=== PATIENT | female | born 1940 | race Caucasian/White ===

== ENCOUNTER 2017-03-30 16:24 | Inpatient (IN) | payer BC, SELFPAY ==
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
--- NOTE | ~2017-03-30 | DS ---
Discharge Summary [facility] [address] [place]. [address] NAME: HARI SARAH : 40 STATUS : DIS IN PAT#: [id number] AGE: 76 ADM/REG DATE : 03/30/17 MR#: [id number] REPORT SERV DATE: 04/07/17 DICTATED BY: MARCELINO CARDONA DATE: 04/07/17 REPORT STATUS : Draft TRANSCRIBED BY: MODL DATE: 04/07/17 ADMISSION DATE: 03/30/2017 DISCHARGE DATE: 04/07/2017 DIAGNOSES ON ADMISSION: 1. Non-anion gap metabolic acidosis. 2. Hypotension. 3. Acute kidney injury. 4. Polypharmacy. 5. Leukocytosis. 6. Severe chronic obstructive pulmonary disease. 7. Diarrhea. DIAGNOSES ON DISCHARGE: 1. Non-anion gap metabolic acidosis present on admission, resolved. 2. Hypotension, resolved, currently blood pressure is in the normal range. 3. Acute kidney injury present on admission, resolved. 4. Polypharmacy. 5. Leukocytosis, resolved. 6. Chronic obstructive pulmonary disease exacerbation present on admission, resolved, no evidence of pneumonia. 7. Dementia with psychosis. Psychosis improved. She has a baseline dementia with some disorientation. CONSULTANTS ON THE CASE: Neurology nurse practitioner, Tamiko Terrazas. STUDIES DONE DURING THIS HOSPITALIZATION: Electroencephalography showed diffuse slowing of cerebral activity, suggestive of mild encephalopathy. Chest x-ray done on 04/06/2017 showed atelectasis in the right lung base, improving compared to previous study. CT of the chest, which was done on 03/30/2017, showed grossly enlarged pulmonary trunk suggesting underlying pulmonary hypertension, upper lobe predominant COPD, mild right middle lobe subsegmental atelectasis, mild mucous plugging in the right posterior basal lower lobe bronchus without atelectasis, 0.4 cm anterior right upper lobe pulmonary nodule of doubtful clinical significance, one year followup on noncontrast CT recommended, densely calcified thoracic aorta suggesting of coronary artery atherosclerotic disease. CT abdomen and pelvis showed sigmoid diverticulosis without diverticulitis, mild infrarenal abdominal aortic ectasia 2.7 cm with moderate atherosclerosis, cholelithiasis, and also spinal stenosis at L2-L3, L3-L4, and L4-L5. CT of the cervical spine did not show any evidence of traumatic injury, it was also done on Brisa [address] on admission. CT of the head showed no evidence of intracranial pathology, cerebral volume loss with supratentorial white matter disease suggesting microangiopathy. HISTORY OF PRESENT ILLNESS: Briefly, this is a 76-year-old female who was admitted by Dr. Shearer with confusion and lethargy. She was found down and covered in diarrhea. For details, see history of present illness dictated by Dr. Shearer. Discharge Summary [address] [place]. [address] NAME: HARI SARAH : 40 STATUS : DIS IN PAT#: [id number] AGE: 76 ADM/REG DATE : 03/30/17 MR#: [id number] REPORT SERV DATE: 04/07/17 DICTATED BY: MARCELINO CARDONA DATE: 04/07/17 REPORT STATUS : Draft TRANSCRIBED BY: SUZETTE DATE: 04/07/17 HOSPITAL COURSE: Briefly, the patient was seen by Dr. Huang until April 04 when I started to see this patient. She was doing well. Her bronchitis was improving. She did not have any fever. White count was in the normal range. She was doing well. She had some confusion, but this was chronic confusion related to her dementia. She was very awake and alert, talking to everybody. She did not have any chest pain or no shortness of breath. She was evaluated by Neurology nurse practitioner, Tamiko Terrazas, who recommended to decrease the dose of Seroquel because it could make her over-sedated and this was done. She did not have any significant cough as well. Overall, the patient improved a lot. She is doing well, so it was recommended the patient to be discharged to rehab. Her creatinine was also stable and it was recommended the patient not to be dehydrated and she needs to be encouraged to drink more water. Also, she will need to recheck her basic metabolic panel on 04/10/2017 at [facility] to make sure it is staying in the same range. On 04/06/2017, her creatinine was 1.25, and on 04/07/2017, it was 1.23, so it is recommended to recheck again and the patient should be encouraged to drink, as well as we would recommend her primary care physician to do a CT of the chest in a year for evaluation of a small pulmonary nodule of undetermined significance. Her psychiatric medications were arranged by neurologist. The patient to continue aspirin 81 mg a day, the patient to stop Mobic because it can cause kidney damage, BuSpar 5 mg p.o. t.i.d., hold for sedation, vitamin D 50,000 units weekly, Neurontin was decreased to 300 p.o. q.8 hours, the patient was started on Aricept by Tamiko Terrazas for her dementia 5 mg a day, Remeron 15 mg at bedtime, nicotine patch 14 mg to be continued, Protonix 40 mg p.o. b.i.d., Seroquel dose was decreased to 50 mg at bedtime and 25 mg in the morning, Zocor 40 mg a day, Advair Diskus one puff inhaled twice a day, albuterol breathing treatment three times daily p.r.n., Colace 100 mg p.o. b.i.d., Tylenol 650 p.o. q.4 hours p.r.n. for pain, nitroglycerin 0.4 mg as needed for pain, the patient to stop Vasotec, Norvasc 5 mg a day, hydralazine 10 mg p.o. b.i.d. p.r.n. for systolic blood pressure more than 160. Check BMP at [facility] on 04/10/2017. The patient was discharged in stable condition. Everything was discussed with the patient and her daughter. I spent 45 minutes on discharge. DICTATED BY: Chandler Mcfarlane/SUZETTE Marcelino Cardona M.D. / [id number] CC: Chandler Mcfarlane SHERRY R.
--- NOTE | ~2017-03-30 | EEG ---
Electroencephalogram [facility] [address] [facility] [place]. [address] NAME: HARI SARAH : 40 STATUS : ADM IN PAT#: [id number] AGE: 76 ADM/REG DATE : 03/30/17 MR#: [id number] REPORT SERV DATE: 04/05/17 DICTATED BY: KIERSTEN ALVAREZ DATE: 04/05/17 REPORT STATUS : Draft TRANSCRIBED BY: MODL DATE: 04/05/17 ELECTROENCEPHALOGRAPHY REPORT REQUESTING PHYSICIAN: Dr. Cristal Huang. ORDERING PHYSICIAN: Tamiko Terrazas APN. INTERPRETING PHYSICIAN: Kiersten Alvarez MD-Neurology. REASON FOR EEG: Altered mental status, encephalopathy. 23 surface electrodes, 10-20 international placement was used. The patient was noted to be awake, drowsy, and asleep throughout the study. Photic stimulation was performed. Video monitoring was utilized. The background activity consisted of poorly organized moderate voltage 8 cycles per second located in the posterior head regions during the awake portion of the recording. During drowsiness and light sleep, increase of slower frequencies was noted in the temporal regions bilaterally. Photic stimulation produced a normal driving response posteriorly. No significant asymmetry of cerebral activity was noted. No paroxysmal or epileptiform features were detected. IMPRESSION: ABNORMAL EEG CHARACTERIZED BY PRESENCE OF DIFFUSE SLOWING OF CEREBRAL ACTIVITY. THE ABOVE FINDINGS MAY BE SUGGESTIVE OF MILD ENCEPHALOPATHY, NATURE OF WHICH COULD NOT BE DETERMINED ON THE BASIS OF EEG ALONE. CLINICAL CORRELATION IS RECOMMENDED. WADEA/SUZETTE Kiersten Alvarez MD / [id number] CC: Chandler Mcfarlane
[2017-03-30 15:44] LABS: ALLENS TEST Pos; BE (BASE EXCESS) -10.6 MEQ/L (0 +/- 2.5); CARBOXYHEMOGLOBIN 4.6 % (0-3); HCO3 (ACTUAL BICARBONATE) 16.9 MEQ/L (23-27); HEMOBLOGIN CONTENT 12.7 G/DL (12-16); INSTRUMENT SERIAL # 8087; METHEMOGLOBIN 0.3 % (0-3); PCO2 (CO2 TENSION) 43 MMHG (35-45); PO2 (O2 TENSION) 60 MMHG (79-93); SAMPLE Arterial; pH 7.21 (7.37-7.43)
[2017-03-30 15:49] LABS: BASOPHILS 0.2 %; BASOPHILS ABSOLUTE 0.02 10/3/uL (0.0-0.16); EOSINOPHILS 1.7 %; EOSINOPHILS ABSOLUTE 0.22 10/3/uL (0.0-0.53); IMMATURE GRANULOCYTES 0.2 %; IMMATURE GRANULOCYTES ABSOLUTE 0.02 10/3/uL (0.0-0.11); LYMPHOCYTES 6.6 %; LYMPHOCYTES ABSOLUTE 0.84 10/3/uL (0.67-4.30); MEAN CORPUS HGB CONC 32.7 g/dL (32.0-36.0); MEAN PLATELET VOLUME 9.9 fL (9.2-13.0); MONOCYTES 6.5 %; MONOCYTES ABSOLUTE 0.83 10/3/uL (0.21-1.20); NEUTROPHILS 84.8 %; NEUTROPHILS ABSOLUTE 10.82 10/3/uL (2.02-8.40)
[2017-03-30 15:50] LABS: ER CBC TAT 0 Hrs 06 MinsN; HEMATOCRIT 40.4 % (36.0-48.0); HEMOGLOBIN 13.2 g/dL (12.0-16.0); MANUAL DIFF NO %; MEAN CORPUSCULAR HEMOGLOB 27.3 pg (26.0-34.0); MEAN CORPUSCULAR VOLUME 83.6 fL (80-100); PLATELET COUNT 236 10/3/uL (150-400); RED CELL COUNT 4.83 10/6/uL (4.0-5.6); WHITE BLOOD CELLS 12.8 10/3/uL (4.5-10.5)
[2017-03-30 16:00] LABS: INTERNATIONAL NORMAL RATI 1.2 UNITS (-); PARTIAL THROMBO TIME 30.5 SEC (22.5-37.2); PROTIME (NOT ORD) 14.8 SEC (12.0-14.5)
[2017-03-30 16:06] LABS: ALBUMIN 2.9 G/DL (3.5-5.0); CALCIUM, SERUM 7.9 MG/DL (8.5-10.4); CHEST PAIN PROFILE TAT 0 Hrs 22 Mins; CHLORIDE, SERUM 106 MMOL/L (96-112); CO2 (CARBON DIOXIDE) 21 MMOL/L (24-34); DIRECT BILIRUBIN 0.2 MG/DL (0.0-0.4); POTASSIUM, SERUM 4.1 MMOL/L (3.5-5.3); SGOT(AST) 137 U/L (5-40); SGPT(ALT) 67 U/L (5-65); SODIUM, SERUM 140 MMOL/L (135-148); TOTAL PROTEIN 5.9 G/DL (6.0-8.5); TROPONIN I 0.04 NG/ML (<0.05)
[2017-03-30 16:07] LABS: ALKALINE PHOSPHATASE 175 U/L (45-117); BUN (BLOOD UREA NITROGEN) 41 MG/DL (6-23); CREATININE 2.41 MG/DL (0.55-1.02); GFR AFRICAN AMERICAN 22 ML/MIN (>=60); GFR NON AFRICAN AMERICAN 19 ML/MIN (>=60); GLUCOSE, SERUM 137 MG/DL (60-99); TOTAL BILIRUBIN 1.2 MG/DL (0-1.2)
[2017-03-30 16:09] LABS: ASCORBIC ACID (UR NOT ORDER) NEG (NEG); BILIRUBIN, URINE NEGATIVE (NEG); ER URINALYSIS TAT 0 Hrs 09 Mins; KETONE, URINE NEGATIVE (NEG); LEUKOCYTE ESTERASE(NOT OR NEG (NEG); NITRITE (URINE) NEG (NEG); WBC (NOT ORDERED) (RFLEX) < 1 (0-5)
[2017-03-30 16:13] LABS: LACTATE 2.6 MMOL/L (0.3-2.4)
[~2017-03-30 16:24] MED LIST: ALLEGRA-D12 HOUR PO; ALLEGRA180 PO; AMB10 PO; DOLOPHINE10 MG PO; FLEX PO; FLONASE NAS; LORTAB 5 PO; LORTAB10 PO; MCZ25 PO; MOBIC7.5 PO; PR25 PO; PRILOSEC40 MG PO; ULTRAM50 PO; VASOTEC5 PO; ZESTORETIC PO; ZITH250 PO; ZOCOR40 PO; ZOL50 PO
[2017-03-30] MEDS ORDERED: SEROQUEL50 MG PO ×2 (16:26)
[2017-03-30] MEDS ORDERED: NEUR600 PO (16:28)
[2017-03-30] MEDS ORDERED: BUSPAR5 PO (16:28)
[2017-03-30] MEDS ORDERED: VITD PO (16:29)
[2017-03-30] MEDS ORDERED: ZOCOR40 PO (16:30)
[2017-03-30] MEDS ORDERED: VASOTEC20 MG PO (16:31)
[2017-03-30] MEDS ORDERED: REM15 PO (16:31)
[2017-03-30] MEDS ORDERED: HALF81 PO (16:32)
[2017-03-30] MEDS ORDERED: NORV5 PO (16:33)
[2017-03-30] MEDS ORDERED: DSS PO (16:34)
[2017-03-30] MEDS ORDERED: ADVAIR250 INH (16:35)
[2017-03-30] MEDS ORDERED: VENTOLIN HFA INH (16:36)
[2017-03-30] MEDS ORDERED: ALBUTEROL0.083 % INH (16:37)
[2017-03-30 16:45] LABS: PROCALCITONIN 0.24 ng/mL (<0.5)
[2017-03-30 17:45] LABS: ACETAMINOPHEN LEVEL (TYLENOL) < 2.0 MCG/ML (10.0-20.0); ALCOHOL < 10 MG/DL (0)
[2017-03-30 17:53] LABS: BE (BASE EXCESS) -9.2 MEQ/L (0 +/- 2.5); CARBOXYHEMOGLOBIN 3.9 % (0-3); HCO3 (ACTUAL BICARBONATE) 18.8 MEQ/L (23-27); HEMOBLOGIN CONTENT 12.4 G/DL (12-16); INSTRUMENT SERIAL # 8087; METHEMOGLOBIN 0.3 % (0-3); O2 CONTENT 15.1 VOL% (18-24); PCO2 (CO2 TENSION) 50 MMHG (35-45); PO2 (O2 TENSION) 67 MMHG (79-93); SAMPLE Arterial
[2017-03-30 17:58] LABS: BENZODIAZEPINES (NOT ORD) NEG (NEG); COCAINE (NOT ORDERED) NEG (NEG); PHENCYCLIDINE(PCP) NEG (NEG)
[2017-03-30 17:59] LABS: AMPHETAMINES (NOT ORD) NEG (NEG); BARBITURATES (NOT ORDERED NEG (NEG); CANNABINOIDS (THC) NEG (NEG); OPIATES NEG (NEG); TRICYCLICS NEG (NEG)
[2017-03-30 18:25] LABS: ACETONE NEG
[2017-03-30 18:38] LABS: LACTATE 1.7 MMOL/L (0.3-2.4)
[2017-03-30 18:48] LABS: CPK 1837 U/L (0-200)
[2017-03-31 03:17] LABS: ALLENS TEST Pos; BE (BASE EXCESS) -0.8 MEQ/L (0 +/- 2.5); CARBOXYHEMOGLOBIN 1.5 % (0-3); DEVICE NC; HCO3 (ACTUAL BICARBONATE) 24.6 MEQ/L (23-27); HEMOBLOGIN CONTENT 11.4 G/DL (12-16); INSTRUMENT SERIAL # 8083; METHEMOGLOBIN 0.3 % (0-3); O2 CONTENT 14.7 VOL% (18-24); OPERATOR ID 33214; PCO2 (CO2 TENSION) 44 MMHG (35-45); PO2 (O2 TENSION) 67 MMHG (79-93); SAMPLE Arterial; pH 7.37 (7.37-7.43)
[2017-03-31 04:07] LABS: BASOPHILS 0.2 %; BASOPHILS ABSOLUTE 0.02 10/3/uL (0.0-0.16); EOSINOPHILS 0.7 %; EOSINOPHILS ABSOLUTE 0.06 10/3/uL (0.0-0.53); HEMOGLOBIN 11.7 g/dL (12.0-16.0); IMMATURE GRANULOCYTES 0.1 %; IMMATURE GRANULOCYTES ABSOLUTE 0.01 10/3/uL (0.0-0.11); LYMPHOCYTES 8.1 %; LYMPHOCYTES ABSOLUTE 0.74 10/3/uL (0.67-4.30); MEAN CORPUS HGB CONC 33.3 g/dL (32.0-36.0); MEAN CORPUSCULAR HEMOGLOB 27.7 pg (26.0-34.0); MEAN PLATELET VOLUME 9.9 fL (9.2-13.0); MONOCYTES 9.3 %; MONOCYTES ABSOLUTE 0.85 10/3/uL (0.21-1.20); NEUTROPHILS 81.6 %; NEUTROPHILS ABSOLUTE 7.43 10/3/uL (2.02-8.40); PLATELET COUNT 208 10/3/uL (150-400); RBC DISTRIBUTION WIDTH 14.9 % (12.0-16.0); RED CELL COUNT 4.23 10/6/uL (4.0-5.6); WHITE BLOOD CELLS 9.1 10/3/uL (4.5-10.5)
[2017-03-31 04:12] LABS: INTERNATIONAL NORMAL RATI 1.2 UNITS (-); PROTIME (NOT ORD) 15.1 SEC (12.0-14.5)
[2017-03-31 04:15] LABS: HEMATOCRIT 35.1 % (36.0-48.0); MANUAL DIFF NO %
[2017-03-31 04:39] LABS: ALBUMIN 2.5 G/DL (3.5-5.0); CALCIUM, SERUM 7.4 MG/DL (8.5-10.4); CHLORIDE, SERUM 106 MMOL/L (96-112); CO2 (CARBON DIOXIDE) 25 MMOL/L (24-34); POTASSIUM, SERUM 4.3 MMOL/L (3.5-5.3); SGOT(AST) 88 U/L (5-40); SGPT(ALT) 51 U/L (5-65); SODIUM, SERUM 140 MMOL/L (135-148); TOTAL PROTEIN 5.1 G/DL (6.0-8.5); TROPONIN I 0.03 NG/ML (<0.05)
[2017-03-31 04:45] LABS: ALKALINE PHOSPHATASE 113 U/L (45-117); BUN (BLOOD UREA NITROGEN) 33 MG/DL (6-23); CREATININE 1.69 MG/DL (0.55-1.02); GFR AFRICAN AMERICAN 34 ML/MIN (>=60); GFR NON AFRICAN AMERICAN 29 ML/MIN (>=60); GLOBULIN 2.6 G/DL (2.5-4.1); GLUCOSE, SERUM 76 MG/DL (60-99); TOTAL BILIRUBIN 0.4 MG/DL (0-1.2)
[2017-03-31 06:41] LABS: PROCALCITONIN 1.28 ng/mL (<0.5)
[2017-03-31 12:57] LABS: FREE T4 1.38 NG/DL (0.76-1.46)
[2017-03-31 17:54] LABS: SODIUM, URINE 21 MEQ/L
[2017-03-31 17:57] LABS: OSMOLALITY, URINE 413 MOSM/KG (50-1200)
[2017-04-01 06:01] LABS: BASOPHILS 0.3 %; BASOPHILS ABSOLUTE 0.03 10/3/uL (0.0-0.16); EOSINOPHILS 1.4 %; EOSINOPHILS ABSOLUTE 0.13 10/3/uL (0.0-0.53); HEMOGLOBIN 9.8 g/dL (12.0-16.0); IMMATURE GRANULOCYTES 0.3 %; IMMATURE GRANULOCYTES ABSOLUTE 0.03 10/3/uL (0.0-0.11); LYMPHOCYTES 13.3 %; LYMPHOCYTES ABSOLUTE 1.21 10/3/uL (0.67-4.30); MEAN CORPUS HGB CONC 32.8 g/dL (32.0-36.0); MEAN CORPUSCULAR HEMOGLOB 27.4 pg (26.0-34.0); MEAN CORPUSCULAR VOLUME 83.5 fL (80-100); MEAN PLATELET VOLUME 9.6 fL (9.2-13.0); MONOCYTES 10.2 %; MONOCYTES ABSOLUTE 0.93 10/3/uL (0.21-1.20); NEUTROPHILS 74.5 %; NEUTROPHILS ABSOLUTE 6.79 10/3/uL (2.02-8.40); PLATELET COUNT 156 10/3/uL (150-400); RED CELL COUNT 3.58 10/6/uL (4.0-5.6); WHITE BLOOD CELLS 9.1 10/3/uL (4.5-10.5)
[2017-04-01 06:07] LABS: HEMATOCRIT 29.9 % (36.0-48.0); MANUAL DIFF NO %
[2017-04-01 06:16] LABS: A/G RATIO 0.8 (0.7-1.9); ALBUMIN 2.1 G/DL (3.5-5.0); CALCIUM, SERUM 7.5 MG/DL (8.5-10.4); CHLORIDE, SERUM 110 MMOL/L (96-112); CO2 (CARBON DIOXIDE) 26 MMOL/L (24-34); CREATININE 1.32 MG/DL (0.55-1.02); GFR AFRICAN AMERICAN 45 ML/MIN (>=60); GFR NON AFRICAN AMERICAN 39 ML/MIN (>=60); GLOBULIN 2.7 G/DL (2.5-4.1); SGPT(ALT) 40 U/L (5-65); SODIUM, SERUM 140 MMOL/L (135-148); TOTAL BILIRUBIN 0.4 MG/DL (0-1.2); TOTAL PROTEIN 4.8 G/DL (6.0-8.5)
[2017-04-01 06:17] LABS: ALKALINE PHOSPHATASE 82 U/L (45-117); BUN (BLOOD UREA NITROGEN) 24 MG/DL (6-23); GLUCOSE, SERUM 104 MG/DL (60-99); POTASSIUM, SERUM 4.9 MMOL/L (3.5-5.3); SGOT(AST) 49 U/L (5-40)
[2017-04-01 07:44] LABS: PROCALCITONIN 1.06 ng/mL (<0.5)
[2017-04-02 06:18] LABS: BASOPHILS 0.1 %; BASOPHILS ABSOLUTE 0.01 10/3/uL (0.0-0.16); EOSINOPHILS 0 %; HEMOGLOBIN 11.6 g/dL (12.0-16.0); IMMATURE GRANULOCYTES 0.6 %; IMMATURE GRANULOCYTES ABSOLUTE 0.06 10/3/uL (0.0-0.11); LYMPHOCYTES 6.8 %; LYMPHOCYTES ABSOLUTE 0.68 10/3/uL (0.67-4.30); MEAN CORPUS HGB CONC 32.1 g/dL (32.0-36.0); MEAN CORPUSCULAR HEMOGLOB 27.4 pg (26.0-34.0); MEAN CORPUSCULAR VOLUME 85.1 fL (80-100); MEAN PLATELET VOLUME 10.1 fL (9.2-13.0); MONOCYTES 2.4 %; MONOCYTES ABSOLUTE 0.24 10/3/uL (0.21-1.20); NEUTROPHILS 90.1 %; NEUTROPHILS ABSOLUTE 9.02 10/3/uL (2.02-8.40); RBC DISTRIBUTION WIDTH 15.3 % (12.0-16.0); RED CELL COUNT 4.24 10/6/uL (4.0-5.6)
[2017-04-02 06:18] LABS: BE (BASE EXCESS) 2.1 MEQ/L (0 +/- 2.5); CARBOXYHEMOGLOBIN 0.8 % (0-3); DEVICE NC; HCO3 (ACTUAL BICARBONATE) 28.7 MEQ/L (23-27); HEMOBLOGIN CONTENT 11.2 G/DL (12-16); INSTRUMENT SERIAL # 8083; METHEMOGLOBIN 0.2 % (0-3); O2 CONTENT 14.9 VOL% (18-24); PCO2 (CO2 TENSION) 54 MMHG (35-45); PO2 (O2 TENSION) 75 MMHG (79-93); SAMPLE Arterial; pH 7.34 (7.37-7.43)
[2017-04-02 06:20] LABS: HEMATOCRIT 36.1 % (36.0-48.0); MANUAL DIFF NO %; PLATELET COUNT 231 10/3/uL (150-400)
[2017-04-02 06:26] LABS: BUN (BLOOD UREA NITROGEN) 21 MG/DL (6-23); CALCIUM, SERUM 8.4 MG/DL (8.5-10.4); CHLORIDE, SERUM 111 MMOL/L (96-112); CO2 (CARBON DIOXIDE) 25 MMOL/L (24-34); GFR AFRICAN AMERICAN 51 ML/MIN (>=60); GFR NON AFRICAN AMERICAN 44 ML/MIN (>=60); POTASSIUM, SERUM 4.9 MMOL/L (3.5-5.3); SODIUM, SERUM 141 MMOL/L (135-148)
[2017-04-02 06:27] LABS: GLUCOSE, SERUM 157 MG/DL (60-99)
[2017-04-03 06:15] LABS: BASOPHILS 0.1 %; BASOPHILS ABSOLUTE 0.01 10/3/uL (0.0-0.16); EOSINOPHILS 0.1 %; EOSINOPHILS ABSOLUTE 0.01 10/3/uL (0.0-0.53); IMMATURE GRANULOCYTES 0.6 %; IMMATURE GRANULOCYTES ABSOLUTE 0.08 10/3/uL (0.0-0.11); LYMPHOCYTES 9.6 %; LYMPHOCYTES ABSOLUTE 1.27 10/3/uL (0.67-4.30); MEAN CORPUS HGB CONC 32.7 g/dL (32.0-36.0); MEAN CORPUSCULAR HEMOGLOB 27.8 pg (26.0-34.0); MONOCYTES 7.1 %; MONOCYTES ABSOLUTE 0.94 10/3/uL (0.21-1.20); NEUTROPHILS 82.5 %; NEUTROPHILS ABSOLUTE 10.98 10/3/uL (2.02-8.40); PLATELET COUNT 275 10/3/uL (150-400); RBC DISTRIBUTION WIDTH 15.5 % (12.0-16.0); WHITE BLOOD CELLS 13.3 10/3/uL (4.5-10.5)
[2017-04-03 06:19] LABS: HEMATOCRIT 30.6 % (36.0-48.0); MANUAL DIFF NO %
[2017-04-03 06:30] LABS: CALCIUM, SERUM 8.3 MG/DL (8.5-10.4); CHLORIDE, SERUM 111 MMOL/L (96-112); CREATININE 1.16 MG/DL (0.55-1.02); GFR AFRICAN AMERICAN 53 ML/MIN (>=60); GFR NON AFRICAN AMERICAN 46 ML/MIN (>=60); POTASSIUM, SERUM 5.4 MMOL/L (3.5-5.3); SODIUM, SERUM 145 MMOL/L (135-148)
[2017-04-03 06:31] LABS: BUN (BLOOD UREA NITROGEN) 27 MG/DL (6-23); CO2 (CARBON DIOXIDE) 30 MMOL/L (24-34); GLUCOSE, SERUM 110 MG/DL (60-99)
[2017-04-03 13:07] LABS: CPK 82 U/L (0-200)
[2017-04-04 06:21] LABS: BASOPHILS 0.1 %; BASOPHILS ABSOLUTE 0.01 10/3/uL (0.0-0.16); EOSINOPHILS 2.4 %; HEMATOCRIT 32.8 % (36.0-48.0); HEMOGLOBIN 10.5 g/dL (12.0-16.0); IMMATURE GRANULOCYTES 0.6 %; IMMATURE GRANULOCYTES ABSOLUTE 0.05 10/3/uL (0.0-0.11); LYMPHOCYTES 24.2 %; LYMPHOCYTES ABSOLUTE 2.06 10/3/uL (0.67-4.30); MANUAL DIFF NO %; MEAN CORPUSCULAR HEMOGLOB 27.4 pg (26.0-34.0); MEAN CORPUSCULAR VOLUME 85.6 fL (80-100); MEAN PLATELET VOLUME 9.6 fL (9.2-13.0); MONOCYTES 11.5 %; MONOCYTES ABSOLUTE 0.98 10/3/uL (0.21-1.20); NEUTROPHILS 61.2 %; PLATELET COUNT 289 10/3/uL (150-400); RBC DISTRIBUTION WIDTH 15.3 % (12.0-16.0); RED CELL COUNT 3.83 10/6/uL (4.0-5.6); WHITE BLOOD CELLS 8.5 10/3/uL (4.5-10.5)
[2017-04-04 06:33] LABS: BUN (BLOOD UREA NITROGEN) 25 MG/DL (6-23); CALCIUM, SERUM 8.3 MG/DL (8.5-10.4); CHLORIDE, SERUM 110 MMOL/L (96-112); CO2 (CARBON DIOXIDE) 32 MMOL/L (24-34); CREATININE 1.12 MG/DL (0.55-1.02); GFR AFRICAN AMERICAN 55 ML/MIN (>=60); GFR NON AFRICAN AMERICAN 48 ML/MIN (>=60); POTASSIUM, SERUM 5.4 MMOL/L (3.5-5.3); SODIUM, SERUM 144 MMOL/L (135-148)
[2017-04-04 06:37] LABS: GLUCOSE, SERUM 77 MG/DL (60-99)
[2017-04-05 06:52] LABS: BUN (BLOOD UREA NITROGEN) 18 MG/DL (6-23); CALCIUM, SERUM 8.4 MG/DL (8.5-10.4); CHLORIDE, SERUM 103 MMOL/L (96-112); CO2 (CARBON DIOXIDE) 33 MMOL/L (24-34); CREATININE 0.99 MG/DL (0.55-1.02); GFR AFRICAN AMERICAN 64 ML/MIN (>=60); GFR NON AFRICAN AMERICAN 55 ML/MIN (>=60); GLUCOSE, SERUM 90 MG/DL (60-99); POTASSIUM, SERUM 4.3 MMOL/L (3.5-5.3); SODIUM, SERUM 140 MMOL/L (135-148)
[2017-04-06 06:46] LABS: BUN (BLOOD UREA NITROGEN) 18 MG/DL (6-23); CALCIUM, SERUM 8.3 MG/DL (8.5-10.4); CHLORIDE, SERUM 104 MMOL/L (96-112); CO2 (CARBON DIOXIDE) 32 MMOL/L (24-34); CREATININE 1.25 MG/DL (0.55-1.02); GFR AFRICAN AMERICAN 48 ML/MIN (>=60); GFR NON AFRICAN AMERICAN 42 ML/MIN (>=60); GLUCOSE, SERUM 102 MG/DL (60-99); SODIUM, SERUM 141 MMOL/L (135-148)
[2017-04-07 09:58] LABS: BUN (BLOOD UREA NITROGEN) 17 MG/DL (6-23); CALCIUM, SERUM 8.3 MG/DL (8.5-10.4); CHLORIDE, SERUM 107 MMOL/L (96-112); CO2 (CARBON DIOXIDE) 28 MMOL/L (24-34); CREATININE 1.23 MG/DL (0.55-1.02); GFR AFRICAN AMERICAN 49 ML/MIN (>=60); GFR NON AFRICAN AMERICAN 43 ML/MIN (>=60); POTASSIUM, SERUM 4.1 MMOL/L (3.5-5.3); SODIUM, SERUM 141 MMOL/L (135-148)
[2017-04-07 09:59] LABS: GLUCOSE, SERUM 142 MG/DL (60-99)
[2017-04-22] MEDS ORDERED: HALF81 PO (17:07)
[2017-04-22] MEDS ORDERED: BUSPAR5 PO (17:07)
[2017-04-22] MEDS ORDERED: ARICEPT5 PO (17:07)
[2017-04-22] MEDS ORDERED: MUCINEX1200 MG PO (17:08)
[2017-04-22] MEDS ORDERED: PROTONIX PO (17:08)
[2017-04-22] MEDS ORDERED: VITD SC (17:08)
[2017-04-22] MEDS ORDERED: REM15 PO (17:08)
[2017-04-22] MEDS ORDERED: NEUR300 PO (17:08)
[2017-04-22] MEDS ORDERED: LIPITOR20 PO (17:08)
[2017-04-22] MEDS ORDERED: DUONEB INH (17:09)
[2017-04-22] MEDS ORDERED: ALBUTEROL0.083 % INH (17:09)
[2017-04-22] MEDS ORDERED: ADVAIR250 INH (17:09)
[2017-04-22] MEDS ORDERED: ZOFRAN ODT4 MG PO (17:10)
[2017-04-22] MEDS ORDERED: DSS PO (17:10)
[2017-04-22] MEDS ORDERED: NITROSTAT0.4 MG SL (17:10)
[2017-04-22] MEDS ORDERED: 8 HOUR650 MG PO (17:10)
[2017-04-22] MEDS ORDERED: APRES10B PO (17:11)
[2017-04-22] MEDS ORDERED: SEROQUEL25 PO ×2 (17:11)
[2017-04-22] MEDS ORDERED: NORV5 PO (17:11)
== END 2017-04-07 15:03 | DRG 871 ==
LOC: ER 16:24 → IMCU 18:59 → 2SO 04-02 13:29
PROVIDERS: Emergency Medicine; Hospitalist; Internal Medicine
DX: A41.9 Sepsis, unspecified organism (principal); J96.01 Acute respiratory failure with hypoxia; G93.41 Metabolic encephalopathy; N17.9 Acute kidney failure, unspecified; T17.590A Other foreign object in bronchus causing asphyxiation, initial encounter; E87.2 Acidosis; I95.9 Hypotension, unspecified; I27.2 Other secondary pulmonary hypertension; F03.90 Unspecified dementia, unspecified severity, without behavioral disturbance, psychotic disturbance, mood disturbance, and anxiety; J44.0 Chronic obstructive pulmonary disease with (acute) lower respiratory infection; J44.1 Chronic obstructive pulmonary disease with (acute) exacerbation; R65.20 Severe sepsis without septic shock; E86.0 Dehydration; E87.5 Hyperkalemia; T43.595A Adverse effect of other antipsychotics and neuroleptics, initial encounter; K21.9 Gastro-esophageal reflux disease without esophagitis; I10 Essential (primary) hypertension; F17.210 Nicotine dependence, cigarettes, uncomplicated; R19.7 Diarrhea, unspecified; E78.2 Mixed hyperlipidemia; J20.9 Acute bronchitis, unspecified; M48.06 Spinal stenosis, lumbar region; R91.1 Solitary pulmonary nodule; K57.30 Diverticulosis of large intestine without perforation or abscess without bleeding; Z83.3 Family history of diabetes mellitus; Z82.49 Family history of ischemic heart disease and other diseases of the circulatory system; Z98.890 Other specified postprocedural states
CPT/HCPCS: 36415; 36600; 70450; 70551; 71010; 71250; 72125; 74176; 80048; 80053; 80076; 80305; 80307; 81001; 82009; 82550; 82805; 83605; 83690; 83735; 83880; 83930; 83935; 84145; 84300; 84439; 84443; 84484; 85025; 85610; 85730; 86850; 86900; 86901; 86920; 87040; 87449; 87641; 94640; 95819; 97110-GP; 97116-GP; 97161-GP; 97165-GO; 97535-GO; 99285; A9270-GY; J0360; J2405; J2930; J3370; J3486